=== PATIENT | female | born 1945 | race Caucasian/White ===

== ENCOUNTER 2018-08-14 18:41 | Emergency (ER) | payer OTHER ==
[~2018-08-14] VITALS: Ht 167.6 cm; Wt 90.7 kg
[2018-08-14] MEDS ORDERED: SODIUM CHLORIDE 0.9% 500 ML IV ONE (19:54)
[2018-08-14 20:03] VITALS: BP 125/55
[2018-08-14 21:58] LABS: Basophils # (auto) 0.1 uL; Basophils % (auto) 0.8 % (0.0-2.0); Eosinophils # (auto) 0.1 uL; Eosinophils % (auto) 1.2 % (0.0-7.0); Hematocrit 42.4 % (36.0-46.0); Hemoglobin 13.9 g/dL (12.2-16.2); Lymphocytes # (auto) 1.6 uL; Lymphocytes % (auto) 15.8 % (10.0-50.0); Mean Corpuscular Hgb Conc. 32.8 g/dL (32.0-36.0); Mean Corpuscular Volume 88.6 fL (80.0-100.0); Monocytes # (auto) 0.7 uL; Monocytes % (auto) 6.8 % (0.0-12.0); Neutrophils # (auto) 7.4 uL; Neutrophils % (auto) 75.4 % (37.0-80.0); Nucleated Red Blood Cells % 0.1 %; Platelet Count (auto) 281 10^3/uL (140-450); Red Blood Cells 4.79 10^6/uL (4.0-5.20); Red Cell Distribution Width 13.7 % (11.8-14.3); White Blood Cell 9.8 10^3/uL (4.4-10.8)
[2018-08-14 22:43] LABS: Calcium 8.9 mg/dL (8.5-10.1); Potassium 4.3 mmol/L (3.5-5.1)
[2018-08-14 22:49] LABS: Albumin 3.1 g/dL (3.4-5.0); BUN/Creatinine Ratio 18.3; Bilirubin, Total 0.1 mg/dL (0.2-1.0); Total Protein 6.7 g/dL (6.4-8.2)
== END 2018-08-15 00:48 | disposition home or self-care (01) ==
LOC: ER 18:41
DX: E11.649 Type 2 diabetes mellitus with hypoglycemia without coma (principal); J32.9 Chronic sinusitis, unspecified; J45.909 Unspecified asthma, uncomplicated; I50.9 Heart failure, unspecified; E07.9 Disorder of thyroid, unspecified; Z79.4 Long term (current) use of insulin
CPT/HCPCS: 36415; 70450; 80053; 82962; 84484; 85025; 94761; 99284; J7040

== ENCOUNTER 2023-08-17 19:37 | Inpatient (IN) | payer OTHER ==
[~2023-08-17] VITALS: Ht 177.8 cm; Wt 130.0 kg
[2023-08-17 20:13] LABS: Basophils # (auto) 0.1 10 ^3/uL (0-0.2); Eosinophils # (auto) 0 10 ^3/uL (0-0.8); Eosinophils % (auto) 0.1 % (0.0-7.0); Nucleated Red Blood Cells % 0.1 %
[2023-08-17 20:14] LABS: Basophils % (auto) 0.6 % (0.0-2.0); Hematocrit 38.4 % (36.0-46.0); Hemoglobin 11.7 g/dL (12.2-16.2); Lymphocytes # (auto) 0.3 10 ^3/uL (0.4-5.4); Lymphocytes % (auto) 2.8 % (10.0-50.0); Mean Corpuscular Hgb Conc. 30.4 g/dL (32.0-36.0); Mean Corpuscular Volume 75.5 fL (80.0-100.0); Monocytes # (auto) 0.5 10 ^3/uL (0-1.3); Monocytes % (auto) 4.5 % (0.0-12.0); Red Blood Cells 5.09 10^6/uL (4.0-5.20); White Blood Cell 11.9 10^3/uL (4.4-10.8)
[2023-08-17 20:27] VITALS: PULSE 106; RESP 17; O2SAT 94
[2023-08-17 20:27] LABS: Chloride 97 mmol/L (98-107); Potassium 4.2 mmol/L (3.5-5.1); Sodium 135 mmol/L (136-145)
[2023-08-17 20:28] LABS: Anion Gap 10 (5-15); Carbon Dioxide 28 mmol/L (20-30)
[2023-08-17 20:29] LABS: Calcium 9.2 mg/dL (8.5-10.1)
[2023-08-17 20:33] LABS: BUN/Creatinine Ratio 20.5 (10.0-20.0); Blood Urea Nitrogen 17 mg/dL (9-23); Glucose 270 mg/dL (74-106); Lactic Acid w/Reflex 2.3 mmol/L (0.4-2.0)
[2023-08-17] MEDS: cefTRIAXone 1GM/50ML D5W 50 ML IV ONE (21:09)
[2023-08-17] MEDS: AZITHROMYCIN 250 MG TAB PO ONE (21:09)
[2023-08-17] MEDS ORDERED: ALBUTEROL SULF 2.5 MG/0.5ML(0.5%) NEB SOLN NEB PRN (21:30)
[2023-08-17] MEDS ORDERED: IPRATROPIUM BROM 0.5 MG/2.5ML INH SOL NEB PRN (21:30)
[2023-08-17] MEDS ORDERED: METO25TA93 PO (21:39)
[2023-08-17] MEDS ORDERED: APIX5TAB PO (21:39)
[2023-08-17] MEDS ORDERED: MONT-8 PO (21:39)
[2023-08-17] MEDS ORDERED: LEV100T PO (21:39)
[2023-08-17] MEDS ORDERED: DIGO0.12 PO (21:39)
[2023-08-17] MEDS ORDERED: ATOR40TA52 PO (21:39)
[2023-08-17] MEDS ORDERED: OMEP1CAP70 PO (21:39)
[2023-08-17] MEDS ORDERED: LOS25T PO (21:39)
[2023-08-17] MEDS ORDERED: DEXTROSE (50%) 50ML SYRG IV PRN (22:00)
[2023-08-17] MEDS: InsuLIN REG 1unit/0.01ml Soln (100units/ml) SC SCH (22:00)
[2023-08-17 22:21] LABS: Triglycerides 83 mg/dL (< 150)
[2023-08-17 22:22] LABS: LDL Cholesterol 75 mg/dL (< 100)
[2023-08-17] MEDS: ACCU-CHEK COMFORT CURVE STRIP VI SCH (22:22)
[2023-08-17] MEDS: APIXABAN 5 MG TAB PO SCH (22:22)
[2023-08-17 22:23] LABS: Cholesterol 174 mg/dL (< 200); HDL Cholesterol 62 mg/dL (40-59)
[2023-08-17 22:50] VITALS: PULSE 119; RESP 23; O2SAT 100
[2023-08-17] MEDS: ALBUTEROL SULF 2.5 MG/0.5ML(0.5%) NEB SOLN NEB SCH (22:55)
[2023-08-17] MEDS: IPRATROPIUM BROM 0.5 MG/2.5ML INH SOL NEB SCH (22:55)
[2023-08-17 22:58] VITALS: PULSE 105; RESP 19; O2SAT 100
[2023-08-17 23:49] VITALS: BP 142/69; PULSE 105; RESP 19; TEMP 98.3; O2SAT 100
[2023-08-18] VITALS (18 sets, daily range): BP systolic 113–147; BP diastolic 50–81; PULSE 66–116; RESP 17–26; TEMP 97.5–97.8; O2SAT 94–100
[2023-08-18] MEDS ORDERED: LEVALBUTEROL HCL 1.25 MG/3 ML NEB NEB SCH
[2023-08-18 04:51] LABS: Eosinophils # (auto) 0 10 ^3/uL (0-0.8); Eosinophils % (auto) 0.3 % (0.0-7.0); Nucleated Red Blood Cells % 0.1 %
[2023-08-18 04:52] LABS: Basophils # (auto) 0.1 10 ^3/uL (0-0.2); Basophils % (auto) 0.9 % (0.0-2.0); Hematocrit 35.6 % (36.0-46.0); Lymphocytes % (auto) 8.9 % (10.0-50.0); Mean Corpuscular Hemoglobin 23.3 pg (28.0-32.0); Mean Corpuscular Volume 75.2 fL (80.0-100.0); Neutrophils # (auto) 8.6 10 ^3/uL (1.6-8.6); Neutrophils % (auto) 80.9 % (37.0-80.0); Red Blood Cells 4.73 10^6/uL (4.0-5.20); Red Cell Distribution Width 19.2 % (11.8-14.3); White Blood Cell 10.7 10^3/uL (4.4-10.8)
[2023-08-18 04:54] LABS: Chloride 99 mmol/L (98-107); Potassium 3.8 mmol/L (3.5-5.1); Sodium 136 mmol/L (136-145)
[2023-08-18 04:55] LABS: Anion Gap 6 (5-15); Calcium 9.3 mg/dL (8.5-10.1); Carbon Dioxide 31 mmol/L (20-30)
[2023-08-18 05:00] LABS: BUN/Creatinine Ratio 13.2 (10.0-20.0); Blood Urea Nitrogen 9 mg/dL (9-23); Glucose 210 mg/dL (74-106)
[2023-08-18] MEDS: BUDESONIDE (INHALATION) 0.5 MG/2 ML NEB NEB SCH (05:34)
[2023-08-18] MEDS: LEVOTHYROXINE SODIUM 100 MCG TAB PO SCH (07:03)
[2023-08-18] MEDS: DIGOXIN 0.125 MG TAB PO SCH (10:00)
[2023-08-18] MEDS ORDERED: PATIENTS OWN MEDICATION (Omeprazole (Omeprazole Dr) 1 CAP) PO SCH (10:00)
[2023-08-18] MEDS ORDERED: PATIENTS OWN MEDICATION (Atorvastatin Calcium 1 TAB) PO SCH (10:00)
[2023-08-18] MEDS ORDERED: PATIENTS OWN MEDICATION (Metoprolol Succinate (Metoprolol Succinate Er) 1 TAB) PO SCH (10:00)
[2023-08-18] MEDS ORDERED: FURO40TA4 PO (10:33)
[2023-08-18] MEDS ORDERED: BUDE0.5S NEB (10:33)
[2023-08-18] MEDS ORDERED: ALBU108A5 PO (10:33)
[2023-08-18] MEDS ORDERED: TIOTCAP PO (10:33)
[2023-08-18] MEDS ORDERED: METF-372 PO (10:33)
[2023-08-18] MEDS: FUROSEMIDE 40 MG/4 ML VIAL IV SCH ×2 (10:46→21:05)
[2023-08-18] MEDS: MONTELUKAST SODIUM 10 MG TAB PO SCH (10:51)
[2023-08-18] MEDS: LOSARTAN POTASSIUM 25 MG TAB PO SCH (10:51)
[2023-08-18] MEDS: METOPROLOL SUCCINATE XL 50 MG TAB PO SCH (10:52)
[2023-08-18] MEDS: PANTOPRAZOLE 40 MG TAB PO SCH (10:52)
[2023-08-18] MEDS: methylPREDNISolone SOD SUCC 40 MG/ML VL IV ONE (16:48)
[2023-08-18 17:11] LABS: Urine Bacteria None Seen /hpf (None Seen)
[2023-08-18 17:30] LABS: Urine Blood Negative /uL (Negative); Urine Clarity Clear (Clear); Urine Color Light-Yellow (Yellow); Urine Protein, UAD Negative (Negative); Urine Specific Gravity 1.011 (1.001-1.035); Urine Urobilinogen Normal (Negative); Urine WBC 1 /hpf (0 - 5); Urine pH 5.5 (5.0-9.0)
[2023-08-18] MEDS: NYSTATIN TOPICAL POWDER 15GM TOP ONE (18:30)
[2023-08-18] MEDS: cefTRIAXone 1GM/50ML D5W 50 ML IV SCH (20:37)
[2023-08-18] MEDS: ATORVASTATIN 20 MG TAB PO SCH (21:05)
[2023-08-18] MEDS: methylPREDNISolone SOD SUCC 40 MG/ML VL IV SCH (21:05)
[2023-08-18] MEDS ORDERED: ALPRAZolam 0.25 MG TAB PO PRN (21:15)
[2023-08-18] MEDS: AZITHROMYCIN 500MG/ 250ML 250 ML IV SCH (21:31)
[2023-08-19] VITALS (22 sets, daily range): BP systolic 107–122; BP diastolic 50–89; PULSE 73–106; RESP 17–50; TEMP 97.3–98.6; O2SAT 92–100
[2023-08-19] MEDS: NYSTATIN TOPICAL POWDER 15GM TOP SCH (06:34)
[2023-08-19 07:19] LABS: Alanine Aminotransferase 26 U/L (7-40); Albumin 3.6 g/dL (3.2-4.8); Alkaline Phosphatase 250 U/L (46-116); Anion Gap 8 (5-15); Aspartate Aminotransferase 28 U/L (13-40); BUN/Creatinine Ratio 16.7 (10.0-20.0); Bilirubin, Total 0.7 mg/dL (0.2-1.0); Blood Urea Nitrogen 13 mg/dL (9-23); Calcium 9.7 mg/dL (8.5-10.1); Carbon Dioxide 30 mmol/L (20-30); Chloride 95 mmol/L (98-107); Glucose 269 mg/dL (74-106); Potassium 4.7 mmol/L (3.5-5.1); Sodium 133 mmol/L (136-145); Total Protein 6.5 g/dL (5.7-8.2)
[2023-08-19 07:36] LABS: White Blood Cell 11.7 10^3/uL (4.4-10.8)
[2023-08-19 07:38] LABS: Hematocrit 35.1 % (36.0-46.0); Hemoglobin 10.7 g/dL (12.2-16.2); Mean Corpuscular Hgb Conc. 30.5 g/dL (32.0-36.0); Mean Corpuscular Volume 75.3 fL (80.0-100.0); Red Blood Cells 4.65 10^6/uL (4.0-5.20); Red Cell Distribution Width 19.3 % (11.8-14.3)
[2023-08-19 07:44] LABS: Basophils % (manual) 0 (0.0-2.0); Blast Cells 0; Eosinophils % (manual) 0 (0-7); Metamyelocytes % 0; Myelocytes % 0; Promyelocytes % 0; Reactive Lymphocytes 0
[2023-08-19 07:45] LABS: Magnesium 1.7 mg/dL (1.6-2.6)
[2023-08-19 08:57] LABS: Band Neutrophils % (manual) 1; Lymphocytes % (manual) 3 (10.0-50.0); Monocytes % (manual) 1 (0-12); Platelet Estimate Adequate
[2023-08-19 08:58] LABS: Hypochromia Moderate
[2023-08-19] MEDS ORDERED: THROAT LOZENGES(CEPASTAT) MT PRN (12:15)
[2023-08-19] MEDS ORDERED: PRED10TA PO (16:27)
[2023-08-20] VITALS (20 sets, daily range): BP systolic 116–138; BP diastolic 51–82; PULSE 63–97; RESP 16–20; TEMP 97.4–98.6; O2SAT 91–100
[2023-08-20 10:08] LABS: Anion Gap 7 (5-15); Carbon Dioxide 28 mmol/L (20-30); Chloride 93 mmol/L (98-107); Potassium 4.6 mmol/L (3.5-5.1)
[2023-08-20 10:10] LABS: Calcium 9.7 mg/dL (8.5-10.1)
[2023-08-20 10:13] LABS: Glucose 373 mg/dL (74-106)
[2023-08-20 10:14] LABS: BUN/Creatinine Ratio 14.7 (10.0-20.0); Blood Urea Nitrogen 14 mg/dL (9-23)
[2023-08-20 10:32] LABS: Sodium 128 mmol/L (136-145)
[2023-08-20] MEDS: cefTRIAXone 1GM/50ML D5W 50 ML IV SCH (20:07)
[2023-08-20] MEDS ORDERED: DEXTROSE (50%) 50ML SYRG IV PRN (22:00)
[2023-08-20] MEDS: ACCU-CHEK COMFORT CURVE STRIP VI SCH (22:13)
[2023-08-20] MEDS: InsuLIN REG 1unit/0.01ml Soln (100units/ml) SC SCH (22:49)
[2023-08-21] VITALS (16 sets, daily range): BP systolic 116–150; BP diastolic 68–96; PULSE 71–103; RESP 14–20; TEMP 97.5–98.4; O2SAT 95–100
[2023-08-21] MEDS: ALBUTEROL SULF 2.5 MG/0.5ML(0.5%) NEB SOLN NEB SCH (00:43)
[2023-08-21] MEDS: IPRATROPIUM BROM 0.5 MG/2.5ML INH SOL NEB SCH (00:43)
[2023-08-21] MEDS: InsuLIN REG 1unit/0.01ml Soln (100units/ml) SC SCH (06:16)
[2023-08-21 06:36] LABS: Basophils # (auto) 0 10 ^3/uL (0-0.2); Basophils % (auto) 0.2 % (0.0-2.0); Eosinophils # (auto) 0 10 ^3/uL (0-0.8); Hemoglobin 11.2 g/dL (12.2-16.2); Lymphocytes # (auto) 0.3 10 ^3/uL (0.4-5.4); Lymphocytes % (auto) 2.3 % (10.0-50.0); Mean Corpuscular Hemoglobin 22.9 pg (28.0-32.0)
[2023-08-21 06:39] LABS: Anion Gap 5 (5-15); Calcium 9.4 mg/dL (8.5-10.1); Carbon Dioxide 31 mmol/L (20-30); Chloride 95 mmol/L (98-107); Hematocrit 37.1 % (36.0-46.0); Mean Corpuscular Hgb Conc. 30.2 g/dL (32.0-36.0); Mean Corpuscular Volume 75.8 fL (80.0-100.0); Monocytes # (auto) 0.8 10 ^3/uL (0-1.3); Monocytes % (auto) 5.3 % (0.0-12.0); Neutrophils # (auto) 13.1 10 ^3/uL (1.6-8.6); Neutrophils % (auto) 92.2 % (37.0-80.0); Potassium 4.7 mmol/L (3.5-5.1); Red Blood Cells 4.89 10^6/uL (4.0-5.20); Red Cell Distribution Width 19.1 % (11.8-14.3); Sodium 131 mmol/L (136-145); White Blood Cell 14.2 10^3/uL (4.4-10.8)
[2023-08-21 06:45] LABS: BUN/Creatinine Ratio 21.8 (10.0-20.0); Blood Urea Nitrogen 19 mg/dL (9-23); Glucose 353 mg/dL (74-106)
[2023-08-21 06:46] LABS: Magnesium 1.7 mg/dL (1.6-2.6)
[2023-08-22] VITALS (14 sets, daily range): BP systolic 118–134; BP diastolic 56–70; PULSE 71–103; RESP 14–20; TEMP 97.8–98.4; O2SAT 94–100
[2023-08-22] MEDS ORDERED: DOXY1CAP57 PO (11:08)
[2023-08-22] MEDS ORDERED: METH4PAK PO (11:08)
== END 2023-08-22 17:44 | disposition home health service (06) | DRG 291 ==
LOC: ER 19:37 → EDBD 19:37 → TELE 21:39 → TELE-WESTW 08-18 10:00
PROVIDERS: ADMIT Internal Medicine Geriatric Medicine; ATTEND Internal Medicine Geriatric Medicine
DX: I11.0 Hypertensive heart disease with heart failure (principal); I50.33 Acute on chronic diastolic (congestive) heart failure; J96.21 Acute and chronic respiratory failure with hypoxia; J44.1 Chronic obstructive pulmonary disease with (acute) exacerbation; I48.20 Chronic atrial fibrillation, unspecified; Z68.41 Body mass index [BMI] 40.0-44.9, adult; L03.115 Cellulitis of right lower limb; L03.116 Cellulitis of left lower limb; E03.9 Hypothyroidism, unspecified; D63.8 Anemia in other chronic diseases classified elsewhere; E11.621 Type 2 diabetes mellitus with foot ulcer; I87.2 Venous insufficiency (chronic) (peripheral); E66.01 Morbid (severe) obesity due to excess calories; Z74.01 Bed confinement status; Z79.01 Long term (current) use of anticoagulants; Z95.2 Presence of prosthetic heart valve; Z80.8 Family history of malignant neoplasm of other organs or systems; Z80.1 Family history of malignant neoplasm of trachea, bronchus and lung; Z79.2 Long term (current) use of antibiotics; Z79.899 Other long term (current) drug therapy; Z87.891 Personal history of nicotine dependence; Z99.81 Dependence on supplemental oxygen
CPT/HCPCS: 36415; 71045; 80048; 80053; 80061; 80162; 81001; 82962; 83036; 83605; 83735; 83880; 84443; 84484; 85007; 85025; 85027; 87040; 87077; 87081; 87186; 87205; 93005; 93306; 94640; 97110; 97116; 97163; 99291; G0378; J1815

== ENCOUNTER 2023-09-18 12:16 | Inpatient (IN) | payer OTHER ==
[~2023-09-18] VITALS: Ht 175.3 cm; Wt 139.9 kg
[~2023-09-18 12:16] MED LIST: ALBU108A5 PO; APIX5TAB PO; ATOR40TA52 PO; BUDE0.5S NEB; DIGO0.12 PO; DOXY1CAP57 PO; FURO40TA4 PO; LEV100T PO; LOS25T PO; METF-372 PO; METH4PAK PO; METO25TA93 PO; MONT-8 PO; OMEP1CAP70 PO; PRED10TA PO; TIOTCAP PO
[2023-09-18] MEDS: ALBUTEROL SULF 2.5 MG/0.5ML(0.5%) NEB SOLN NEB ONE (12:44)
[2023-09-18] MEDS: IPRATROPIUM BROM 0.5 MG/2.5ML INH SOL NEB ONE (12:45)
[2023-09-18] MEDS: methylPREDNISolone SOD SUCC 125 MG/2 ML VL IV ONE (13:00)
[2023-09-18] MEDS: SODIUM CHLORIDE 0.9% 500 ML IV ONE (14:00)
[2023-09-18 14:20] LABS: Basophils # (auto) 0.1 10 ^3/uL (0-0.2); Basophils % (auto) 0.8 % (0.0-2.0); Eosinophils # (auto) 0.1 10 ^3/uL (0-0.8); Eosinophils % (auto) 1.5 % (0.0-7.0); Hematocrit 35.6 % (36.0-46.0); Hemoglobin 10.6 g/dL (12.2-16.2); Lymphocytes # (auto) 1.1 10 ^3/uL (0.4-5.4); Lymphocytes % (auto) 11.7 % (10.0-50.0); Mean Corpuscular Hemoglobin 23.5 pg (28.0-32.0); Mean Corpuscular Hgb Conc. 29.9 g/dL (32.0-36.0); Mean Corpuscular Volume 78.6 fL (80.0-100.0); Monocytes # (auto) 1.1 10 ^3/uL (0-1.3); Monocytes % (auto) 12.2 % (0.0-12.0); Neutrophils # (auto) 6.9 10 ^3/uL (1.6-8.6); Neutrophils % (auto) 73.8 % (37.0-80.0); Nucleated Red Blood Cells % 0.1 %; Red Blood Cells 4.52 10^6/uL (4.0-5.20); White Blood Cell 9.3 10^3/uL (4.4-10.8)
[2023-09-18] MEDS: FUROSEMIDE 40 MG/4 ML VIAL IV ONE (14:32)
[2023-09-18 15:17] LABS: Alanine Aminotransferase 31 U/L (7-40); Albumin 3.2 g/dL (3.2-4.8); Alkaline Phosphatase 219 U/L (46-116); Anion Gap 8 (5-15); Aspartate Aminotransferase 44 U/L (13-40); BUN/Creatinine Ratio 26.9 (10.0-20.0); Blood Urea Nitrogen 28 mg/dL (9-23); Calcium 8.6 mg/dL (8.5-10.1); Carbon Dioxide 32 mmol/L (20-30); Chloride 95 mmol/L (98-107); Glucose 139 mg/dL (74-106); Magnesium 1.3 mg/dL (1.6-2.6); Potassium 3.9 mmol/L (3.5-5.1); Sodium 135 mmol/L (136-145)
[2023-09-18 15:18] LABS: Bilirubin, Total 0.5 mg/dL (0.2-1.0); Total Protein 5.4 g/dL (5.7-8.2)
[2023-09-18 15:19] LABS: Red Cell Distribution Width 21.5 % (11.8-14.3)
[2023-09-18] MEDS ORDERED: DOCUSATE SOD 100 MG CAP PO PRN (16:15)
[2023-09-18] MEDS ORDERED: ACETAMINOPHEN 325 MG TAB PO PRN (16:15)
[2023-09-18] MEDS: MAGNESIUM SULFATE 1GM/100ML 100 ML IV ONE (16:15)
[2023-09-18] MEDS ORDERED: NITROGLYCERIN 0.4 MG SL TAB SL PRN (16:15)
[2023-09-18] MEDS ORDERED: ONDANSETRON HCL 4 MG/2 ML VIAL IV PRN (16:15)
[2023-09-18] MEDS ORDERED: MORPHINE SULFATE INJ 2 MG/ml SYRG IV PRN (16:15)
[2023-09-18] MEDS ORDERED: DEXTROSE (50%) 50ML SYRG IV PRN (16:15)
[2023-09-18 16:21] LABS: Lactic Acid w/Reflex 2.9 mmol/L (0.4-2.0)
[2023-09-18] MEDS: ACCU-CHEK COMFORT CURVE STRIP VI SCH (17:00)
[2023-09-18] MEDS: InsuLIN REG 1unit/0.01ml Soln (100units/ml) SC SCH ×2 (18:22→22:22)
[2023-09-18 20:01] VITALS: PULSE 96; RESP 18; O2SAT 95
[2023-09-18] MEDS: SODIUM CHLOR 0.9% PF (SALINE LOCK) 10ML VIAL/SYR IV SCH (22:00)
[2023-09-18] MEDS: ATORVASTATIN 20 MG TAB PO SCH (22:22)
[2023-09-18] MEDS: APIXABAN 5 MG TAB PO SCH (22:22)
[2023-09-18 22:32] VITALS: PULSE 98; RESP 16; O2SAT 99
[2023-09-18] MEDS: BUDESONIDE (INHALATION) 0.5 MG/2 ML NEB NEB SCH (22:32)
[2023-09-18 22:38] VITALS: PULSE 98; RESP 18; O2SAT 100
[2023-09-18] MEDS: HYDROcodone-ACET 5/325MG TAB PO PRN (22:40)
[2023-09-18 22:52] VITALS: BP 131/41; PULSE 98; RESP 16; O2SAT 99
[2023-09-19] VITALS (13 sets, daily range): BP systolic 105–135; BP diastolic 62–73; PULSE 75–98; RESP 16–20; TEMP 97.5–98.3; O2SAT 91–99
[2023-09-19 03:54] LABS: Alanine Aminotransferase 28 U/L (7-40); Albumin 3.4 g/dL (3.2-4.8); Alkaline Phosphatase 224 U/L (46-116); Anion Gap 3 (5-15); Aspartate Aminotransferase 31 U/L (13-40); Blood Urea Nitrogen 22 mg/dL (9-23); Calcium 8.9 mg/dL (8.5-10.1); Carbon Dioxide 35 mmol/L (20-30); Chloride 95 mmol/L (98-107); Glucose 320 mg/dL (74-106); Magnesium 1.5 mg/dL (1.6-2.6); Potassium 3.7 mmol/L (3.5-5.1); Sodium 133 mmol/L (136-145)
[2023-09-19 03:55] LABS: Basophils # (auto) 0 10 ^3/uL (0-0.2); Eosinophils # (auto) 0 10 ^3/uL (0-0.8); Hemoglobin 11.2 g/dL (12.2-16.2); Monocytes # (auto) 0.6 10 ^3/uL (0-1.3); Nucleated Red Blood Cells % 0.1 %
[2023-09-19 03:56] LABS: Bilirubin, Total 0.6 mg/dL (0.2-1.0); Total Protein 6.1 g/dL (5.7-8.2)
[2023-09-19 03:57] LABS: Basophils % (auto) 0.4 % (0.0-2.0); Hematocrit 36.3 % (36.0-46.0); Lymphocytes # (auto) 0.4 10 ^3/uL (0.4-5.4); Lymphocytes % (auto) 5.4 % (10.0-50.0); Mean Corpuscular Volume 77.5 fL (80.0-100.0); Monocytes % (auto) 7.7 % (0.0-12.0); Neutrophils # (auto) 6.8 10 ^3/uL (1.6-8.6); Neutrophils % (auto) 86.5 % (37.0-80.0); Red Blood Cells 4.68 10^6/uL (4.0-5.20); White Blood Cell 7.8 10^3/uL (4.4-10.8)
[2023-09-19 04:02] LABS: Red Cell Distribution Width 21.2 % (11.8-14.3)
[2023-09-19] MEDS: TIOTROPIUM BROMIDE MONOHYDRATE IN SCH (10:00)
[2023-09-19] MEDS: MONTELUKAST SODIUM 10 MG TAB PO SCH (10:00)
[2023-09-19] MEDS ORDERED: INSLANTI SC (11:48)
[2023-09-19] MEDS: predniSONE 5 MG TAB PO SCH (11:57)
[2023-09-19] MEDS: LEVOTHYROXINE SODIUM 100 MCG TAB PO SCH (11:57)
[2023-09-19] MEDS: FUROSEMIDE 40 MG/4 ML VIAL IV ONE (18:06)
[2023-09-19] MEDS: ALBUTEROL SULF 2.5 MG/0.5ML(0.5%) NEB SOLN NEB PRN (22:07)
[2023-09-19] MEDS: IPRATROPIUM BROM 0.5 MG/2.5ML INH SOL NEB PRN (22:07)
[2023-09-20] VITALS (12 sets, daily range): BP systolic 107–143; BP diastolic 50–85; PULSE 61–106; RESP 18–20; TEMP 97.6–98.1; O2SAT 91–100
[2023-09-20 00:38] LABS: Urine Bacteria FEW /hpf (None Seen); Urine Blood TRACE /uL (Negative); Urine Budding Yeast MANY /hpf (None Seen); Urine Clarity Turbid (Clear); Urine Color Light-Yellow (Yellow); Urine Hyaline Cast MOD /lpf (0 - 2); Urine Protein, UAD Negative (Negative); Urine Specific Gravity 1.011 (1.001-1.035); Urine Urobilinogen Normal (Negative); Urine WBC 248 /hpf (0 - 5); Urine WBC Clumps PRESENT /hpf (None Seen); Urine pH 5.5 (5.0-9.0)
[2023-09-20 07:27] LABS: Alanine Aminotransferase 27 U/L (7-40); Alkaline Phosphatase 206 U/L (46-116); Anion Gap 2 (5-15); BUN/Creatinine Ratio 26.6 (10.0-20.0); Blood Urea Nitrogen 21 mg/dL (9-23); Calcium 8.9 mg/dL (8.5-10.1); Carbon Dioxide 39 mmol/L (20-30); Chloride 95 mmol/L (98-107); Glucose 225 mg/dL (74-106); Magnesium 1.5 mg/dL (1.6-2.6); Potassium 3.4 mmol/L (3.5-5.1); Sodium 136 mmol/L (136-145); Triglycerides 73 mg/dL (< 150)
[2023-09-20 07:28] LABS: Albumin 3.4 g/dL (3.2-4.8); LDL Cholesterol 80 mg/dL (< 100)
[2023-09-20 07:29] LABS: Aspartate Aminotransferase 29 U/L (13-40); Bilirubin, Total 0.5 mg/dL (0.2-1.0); Cholesterol 180 mg/dL (< 200); HDL Cholesterol 69 mg/dL (40-59); Total Protein 5.9 g/dL (5.7-8.2)
[2023-09-20 07:44] LABS: Eosinophils # (auto) 0.1 10 ^3/uL (0-0.8); Hemoglobin 10.7 g/dL (12.2-16.2); Lymphocytes # (auto) 1.1 10 ^3/uL (0.4-5.4); Neutrophils # (auto) 6.2 10 ^3/uL (1.6-8.6); Nucleated Red Blood Cells % 0.2 %
[2023-09-20 07:47] LABS: Basophils # (auto) 0.1 10 ^3/uL (0-0.2); Basophils % (auto) 0.6 % (0.0-2.0); Eosinophils % (auto) 0.6 % (0.0-7.0); Hematocrit 33.6 % (36.0-46.0); Mean Corpuscular Hemoglobin 24.4 pg (28.0-32.0); Mean Corpuscular Hgb Conc. 31.9 g/dL (32.0-36.0); Mean Corpuscular Volume 76.4 fL (80.0-100.0); Monocytes % (auto) 11.8 % (0.0-12.0); Red Blood Cells 4.39 10^6/uL (4.0-5.20); White Blood Cell 8.4 10^3/uL (4.4-10.8)
[2023-09-20 07:48] LABS: Red Cell Distribution Width 20.6 % (11.8-14.3)
[2023-09-20] MEDS: FUROSEMIDE 40 MG/4 ML VIAL IV SCH (09:35)
[2023-09-20] MEDS: LEVOTHYROXINE SODIUM 50 MCG TAB PO SCH (10:00)
[2023-09-20] MEDS: POTASSIUM CHL 20 Meq TABLET PO SCH (12:13)
[2023-09-20] MEDS: LEVOTHYROXINE SODIUM 100 MCG TAB PO SCH (12:14)
[2023-09-20] MEDS: CLINDAMYCIN 600MG IV 50 ML IV SCH (16:37)
[2023-09-21] VITALS (19 sets, daily range): BP systolic 119–158; BP diastolic 53–83; PULSE 86–114; RESP 16–24; TEMP 97.4–98.7; O2SAT 93–100
[2023-09-21 07:18] LABS: Anion Gap 3 (5-15); Calcium 8.8 mg/dL (8.5-10.1); Carbon Dioxide 38 mmol/L (20-30); Chloride 95 mmol/L (98-107); Sodium 136 mmol/L (136-145)
[2023-09-21 07:24] LABS: BUN/Creatinine Ratio 25.3 (10.0-20.0); Blood Urea Nitrogen 19 mg/dL (9-23); Glucose 284 mg/dL (74-106); Magnesium 1.4 mg/dL (1.6-2.6)
[2023-09-21] MEDS: MAGNESIUM OXIDE 400 MG TAB PO ONE (11:48)
[2023-09-21] MEDS: INSULIN LANTUS (GLARGINE) 1 /0.01ml (100units/ml) SC ONE (12:03)
[2023-09-21] MEDS: FUROSEMIDE 40 MG/4 ML VIAL IV SCH (21:56)
[2023-09-21] MEDS: INSULIN LANTUS (GLARGINE) 1 /0.01ml (100units/ml) SC SCH (22:05)
[2023-09-22] VITALS (9 sets, daily range): BP systolic 110–127; BP diastolic 52–63; PULSE 66–110; RESP 16–20; TEMP 97.4–98; O2SAT 93–99
[2023-09-22 07:29] LABS: Chloride 95 mmol/L (98-107); Potassium 3.6 mmol/L (3.5-5.1); Sodium 138 mmol/L (136-145)
[2023-09-22 07:30] LABS: Calcium 9.1 mg/dL (8.5-10.1)
[2023-09-22 07:35] LABS: Blood Urea Nitrogen 16 mg/dL (9-23); Glucose 52 mg/dL (74-106)
[2023-09-22 07:57] LABS: Anion Gap 2.99999 (5-15)
[2023-09-22 07:58] LABS: Carbon Dioxide > 40 mmol/L (20-30)
[2023-09-22] MEDS: MAGNESIUM OXIDE 400 MG TAB PO SCH (09:31)
[2023-09-22] MEDS: DOCUSATE SOD 100 MG CAP PO SCH (10:00)
[2023-09-22] MEDS: LACTULOSE 20Gm/30ML SOLN PO ONE (11:01)
== END 2023-09-22 19:10 | DRG 682 ==
LOC: ER 12:16 → EDBD 12:16 → TELE 16:16 → TELE-WESTW 09-19 09:55
PROVIDERS: ADMIT Internal Medicine Geriatric Medicine; ATTEND Internal Medicine Geriatric Medicine
DX: N17.0 Acute kidney failure with tubular necrosis (principal); I50.33 Acute on chronic diastolic (congestive) heart failure; L03.116 Cellulitis of left lower limb; L03.115 Cellulitis of right lower limb; J96.11 Chronic respiratory failure with hypoxia; Z68.41 Body mass index [BMI] 40.0-44.9, adult; E87.1 Hypo-osmolality and hyponatremia; I95.2 Hypotension due to drugs; I11.0 Hypertensive heart disease with heart failure; S91.301A Unspecified open wound, right foot, initial encounter; T46.5X5A Adverse effect of other antihypertensive drugs, initial encounter; S91.302A Unspecified open wound, left foot, initial encounter; I48.91 Unspecified atrial fibrillation; E03.9 Hypothyroidism, unspecified; E83.42 Hypomagnesemia; E66.01 Morbid (severe) obesity due to excess calories; E78.5 Hyperlipidemia, unspecified; J44.89 Other specified chronic obstructive pulmonary disease; D63.8 Anemia in other chronic diseases classified elsewhere; X58.XXXA Exposure to other specified factors, initial encounter; K59.00 Constipation, unspecified; E11.9 Type 2 diabetes mellitus without complications; Z79.01 Long term (current) use of anticoagulants; Z99.81 Dependence on supplemental oxygen; Z79.899 Other long term (current) drug therapy; Z90.11 Acquired absence of right breast and nipple; Z90.49 Acquired absence of other specified parts of digestive tract; Y93.89 Activity, other specified; Y92.89 Other specified places as the place of occurrence of the external cause; Y99.8 Other external cause status; Z95.2 Presence of prosthetic heart valve; Z80.8 Family history of malignant neoplasm of other organs or systems; Z80.1 Family history of malignant neoplasm of trachea, bronchus and lung
CPT/HCPCS: 36415; 71045; 80048; 80053; 80061; 81001; 82962; 83605; 83735; 83880; 84443; 84484; 85025; 87081; 93005; 94640; 96365; 96375; 97110; 97163; G0378; J1815; J3490